=== PATIENT | male | born 1960 | race Caucasian/White ===

== ENCOUNTER 2017-09-08 07:40 | Emergency (ER) | payer BC ==
[~2017-09-08] VITALS: Ht 170.1 cm; Wt 83.9 kg
[~2017-09-08 07:40] MED LIST: ANAPROX DS550 MG PO; FLEXERIL10 MG PO; MOTRIN800 MG PO; TRAMADOL HCL50 MG PO
[2017-09-08] MEDS ORDERED: LEVOFLOXACIN500 MG PO (08:42)
== END 2017-09-08 09:08 | disposition home or self-care (01) ==
LOC: ED 07:40
DX: J40 Bronchitis, not specified as acute or chronic (principal); J32.9 Chronic sinusitis, unspecified

== ENCOUNTER 2018-10-20 23:46 | Emergency (ER) | payer BC ==
[~2018-10-20] VITALS: Ht 170.1 cm; Wt 81.6 kg
--- NOTE | ~2018-10-20 | EKG ---
[place], [place] ELECTROCARDIOGRAM REPORT NAME: JOSEFA BLANTON UNIT #: [id number] ROOM: DOCTOR: EPIPHANY DRAFT REPORT BIRTHDATE: [birth year] [facility] Test Date: 2018-10-20 Test Time: 23:52:39 Pat Name: JOSEFA BLANTON Department: Room: [facility] Gender: M Ham Smoker: : 1960 Requested By: SCOTT LLOYD Order Number: [id number] Reading MD: Jose Caicedo MD Measurements Intervals Creole Rate: 71 P: 34 KS: 148 QRS: 56 QRSD: 97 T: 26 QT: 378 QTc: 411 Interpretive Statements Sinus rhythm Minimal ST elevation, anterior leads Electronically Signed On 10-23-2018 8:11:41 PDT by Jose Caicedo MD CM:EKGRPT:ELECTROCARDIOGRAM REPORT [id number] SCOTT LLOYD MD EPIPHANY DRAFT REPORT SCOTT LLOYD MD
[~2018-10-20 23:46] MED LIST changes: +LEVOFLOXACIN500 MG PO
[2018-10-20 23:47] VITALS: BP 144/84
[2018-10-21 00:07] LABS: BASO # 0.1 10*3/uL (0.0-0.1); BASO % 0.9 % (0.0-1.0); EOS # 0.4 10*3/uL (0.0-0.4); EOS % 3.6 % (1.0-4.0); HEMATOCRIT 47.4 % (42.0-52.0); HEMOGLOBIN 15.5 g/dl (14.0-18.0); LYMPH % 20.1 % (27.0-41.0); MEAN CORPUSCULAR HGB 30.8 pg (27.0-31.0); MEAN CORPUSCULAR HGB CONC 32.7 g/dl (33.0-37.0); MEAN PLATELET VOLUME 10.5 fl (9.6-12.3); MONO # 0.9 10*3/uL (0.1-1.0); MONO % 9.5 % (3.0-9.0); NEUT # 6.5 10*3/uL (2.3-7.9); NEUT % 65.5 % (47.0-73.0); PLATELET COUNT AUTOMATED 279 10*3/uL (130-400); RED BLOOD COUNT 5.04 10*6/uL (4.50-5.90); RED CELL DISTRI WIDTH 13.6 % (0-14.5); WHITE BLOOD COUNT 9.9 10*3/uL (4.8-10.8)
[2018-10-21 00:43] LABS: ACT PARTIAL THROMBO TIME 24.9 SECONDS (20.0-32.1); INTERNATIONAL NORM RATIO 0.9 (2.0-3.5)
[2018-10-21 00:47] LABS: ALBUMIN 3.3 gm/dl (3.1-4.5); ALKALINE PHOSPHATASE 79 U/L (45-117); BUN 19 mg/dl (7-24); CHLORIDE 110 mmol/L (98-107); CREATININE 1.12 mg/dL (0.70-1.30); SGOT/AST 15 IU/L (3-35); SGPT/ALT 24 U/L (12-78); SODIUM 140 mmol/L (136-145); TOTAL PROTEIN 6.7 gm/dL (6.4-8.2)
[2018-10-21 00:49] LABS: TROPONIN I < 0.015 ng/ml (<0.045)
[2018-10-21 01:51] VITALS: BP 114/67
[2018-10-21 02:29] VITALS: BP 115/70
== END 2018-10-21 02:53 | disposition left against medical advice (07) ==
LOC: ED 23:46 → EDHOLD 10-21 02:19 → ED 10-21 02:19 → 5E 10-21 02:42 → EDHOLD 10-21 02:42 → ED 10-21 02:53
PROVIDERS: Emergency Medicine Emergency Medical Services
DX: R07.9 Chest pain, unspecified (principal); R06.02 Shortness of breath; R20.0 Anesthesia of skin; H53.8 Other visual disturbances; R42 Dizziness and giddiness; R11.0 Nausea; F17.200 Nicotine dependence, unspecified, uncomplicated

== ENCOUNTER 2019-01-10 06:16 | Emergency (ER) | payer BC ==
[~2019-01-10] VITALS: Ht 170.1 cm; Wt 86.2 kg
[2019-01-10] MEDS ORDERED: CEPHALEXIN500 M1 PO (06:47)
== END 2019-01-10 07:05 | disposition home or self-care (01) ==
LOC: ED 06:16
DX: S61.412A Laceration without foreign body of left hand, initial encounter (principal); W45.8XXA Other foreign body or object entering through skin, initial encounter; Y93.89 Activity, other specified; Y92.89 Other specified places as the place of occurrence of the external cause; Y99.8 Other external cause status

== ENCOUNTER 2020-10-23 08:06 | Emergency (ER) | payer BC ==
[~2020-10-23] VITALS: Wt 83.9 kg
[~2020-10-23 08:06] MED LIST changes: +CEPHALEXIN500 M1 PO
[2020-10-23 08:35] LABS: BASO # 0.1 10*3/uL (0.0-0.1); BASO % 0.6 % (0.0-1.0); EOS # 0.3 10*3/uL (0.0-0.4); EOS % 3.1 % (1.0-4.0); HEMATOCRIT 48.3 % (42.0-52.0); LYMPH # 1.9 10*3/uL (1.3-4.4); LYMPH % 17.9 % (27.0-41.0); MEAN CELL VOLUME 92.7 fl (80.0-94.0); MEAN CORPUSCULAR HGB 30.1 pg (27.0-31.0); MEAN CORPUSCULAR HGB CONC 32.5 g/dl (33.0-37.0); MEAN PLATELET VOLUME 9.3 fl (9.6-12.3); MONO % 9.3 % (3.0-9.0); NEUT # 7.2 10*3/uL (2.3-7.9); NEUT % 68.4 % (47.0-73.0); PLATELET COUNT AUTOMATED 242 10*3/uL (130-400); RED BLOOD COUNT 5.21 10*6/uL (4.50-5.90); RED CELL DISTRI WIDTH 13.5 % (0-14.5); WHITE BLOOD COUNT 10.5 10*3/uL (4.8-10.8)
[2020-10-23 08:46] LABS: BUN 16 mg/dl (7-24); CHLORIDE 107 mmol/L (98-107); CREATININE 1.32 mg/dL (0.70-1.30); POTASSIUM 4.3 mmol/L (3.5-5.1); SODIUM 138 mmol/L (136-145); URIC ACID 4.9 mg/dL (3.5-7.2)
== END 2020-10-23 09:37 | disposition home or self-care (01) ==
LOC: ED 08:06
PROVIDERS: Emergency Medicine
DX: M25.571 Pain in right ankle and joints of right foot (principal); F17.200 Nicotine dependence, unspecified, uncomplicated; Z90.89 Acquired absence of other organs

== ENCOUNTER → 2021-12-21 | Outpatient (CLI) | payer OTHER | END | disposition home or self-care (01) | LOC: RAD 12:38 | PROVIDERS: ATTEND Family Medicine | DX: M25.811 Other specified joint disorders, right shoulder (principal) ==

== ENCOUNTER 2022-01-13 12:50 | Emergency (ER) | payer SELFPAY ==
[~2022-01-13] VITALS: Ht 170.1 cm; Wt 86.2 kg
== END 2022-01-13 16:38 | disposition left against medical advice (07) ==
LOC: ED 12:50
DX: Z53.21 Procedure and treatment not carried out due to patient leaving prior to being seen by health care provider (principal)

== ENCOUNTER 2022-05-25 06:39 | Emergency (ER) | payer BC ==
[~2022-05-25] VITALS: Ht 170.1 cm; Wt 83.9 kg
[2022-05-25 08:13] LABS: BASO # 0.1 10*3/uL (0.0-0.1); BASO % 0.7 % (0.0-1.0); EOS # 0.3 10*3/uL (0.0-0.4); EOS % 3.1 % (1.0-4.0); HEMATOCRIT 51.8 % (42.0-52.0); LYMPH # 1.6 10*3/uL (1.3-4.4); LYMPH % 19.9 % (27.0-41.0); MEAN CELL VOLUME 93.5 fl (80.0-94.0); MEAN PLATELET VOLUME 9.2 fl (9.6-12.3); MONO # 0.8 10*3/uL (0.1-1.0); MONO % 9.4 % (3.0-9.0); NEUT # 5.5 10*3/uL (2.3-7.9); NEUT % 66.5 % (47.0-73.0); PLATELET COUNT AUTOMATED 248 10*3/uL (130-400); RED BLOOD COUNT 5.54 10*6/uL (4.50-5.90); RED CELL DISTRI WIDTH 13.1 % (0-14.5); WHITE BLOOD COUNT 8.3 10*3/uL (4.8-10.8)
[2022-05-25 08:25] LABS: ACT PARTIAL THROMBO TIME 28.9 SECONDS (20.0-32.1); INTERNATIONAL NORM RATIO 0.9 (2.0-3.5)
[2022-05-25 08:28] LABS: ALKALINE PHOSPHATASE 70 U/L (46-116); BUN 16 mg/dl (9-23); CHLORIDE 105 mmol/L (98-107); POTASSIUM 4.6 mmol/L (3.4-5.1); SGPT/ALT 32 U/L (10-49); TOTAL PROTEIN 7.1 gm/dL (6.0-8.0)
[2022-05-25] MEDS ORDERED: PREDNISONE50 MG PO (10:37)
[2022-05-25] MEDS ORDERED: PERCOCET 5-3251 EACH PO (10:37)
[2022-05-25] MEDS ORDERED: CYCLOBENZAPRINE10 MG PO (10:37)
== END 2022-05-25 11:10 | disposition home or self-care (01) ==
LOC: ED 06:39
PROVIDERS: Emergency Medicine
DX: M54.32 Sciatica, left side (principal)

== ENCOUNTER → 2022-10-06 | Outpatient (CLI) | payer BC ==
[~2022-10-06] MED LIST changes: +CYCLOBENZAPRINE10 MG PO; +PERCOCET 5-3251 EACH PO; +PREDNISONE50 MG PO
== END | disposition home or self-care (01) ==
LOC: RAD 11:32
PROVIDERS: ATTEND Chiropractor
DX: M51.37 Other intervertebral disc degeneration, lumbosacral region (principal)

== ENCOUNTER → 2022-11-08 | Outpatient (CLI) | payer BC | END | disposition home or self-care (01) | LOC: RAD 14:49 | PROVIDERS: ATTEND Family Medicine | DX: M47.812 Spondylosis without myelopathy or radiculopathy, cervical region (principal); M47.814 Spondylosis without myelopathy or radiculopathy, thoracic region; M48.02 Spinal stenosis, cervical region ==

== ENCOUNTER → 2023-03-21 | Outpatient (CLI) | payer BC ==
[~2023-03-21] MED LIST changes: +MELOXICAM15 MG PO
== END | disposition home or self-care (01) ==
LOC: MRI 07:31
PROVIDERS: ATTEND Registered Nurse
DX: M50.31 Other cervical disc degeneration, high cervical region (principal); M50.90 Cervical disc disorder, unspecified, unspecified cervical region; M25.78 Osteophyte, vertebrae; M48.03 Spinal stenosis, cervicothoracic region

== ENCOUNTER 2023-04-17 11:11 | Emergency (ER) | payer BC ==
[~2023-04-17] VITALS: Ht 170.1 cm; Wt 88.5 kg
[2023-04-17] MEDS ORDERED: IBU800 MG PO (11:36)
[2023-04-17] MEDS ORDERED: DEXAMETHASONE6 MG PO (12:34)
== END 2023-04-17 12:41 | disposition home or self-care (01) ==
LOC: ED 11:11
DX: U07.1 COVID-19 (principal); Z98.890 Other specified postprocedural states

== ENCOUNTER → 2024-07-23 | Outpatient (CLI) | payer BC ==
[~2024-07-23] MED LIST changes: +DEXAMETHASONE6 MG PO; +IBU800 MG PO
[2024-07-23 16:45] LABS: BILIRUBIN Negative (Negative); BLOOD Negative (Negative); CLARITY Clear (Clear); COLOR Yellow (Yellow); GLUCOSE Negative (Negative); KETONE Negative (Negative); LEUKO ESTERASE Negative (Negative); NITRITE Negative (Negative); SPECIFIC GRAVITY 1.015 (1.001-1.030); UROBILINOGEN 0.2 E.U./dl (0.0-1.0)
[2024-07-23 16:46] LABS: BASO # 0.1 10*3/uL (0.0-0.1); BASO % 0.8 % (0.0-1.0); EOS # 0.3 10*3/uL (0.0-0.4); EOS % 2.8 % (1.0-4.0); HEMATOCRIT 50.9 % (42.0-52.0); MEAN CELL VOLUME 93.2 fl (80.0-94.0); MEAN CORPUSCULAR HGB 29.9 pg (27.0-31.0); MEAN PLATELET VOLUME 9.1 fl (9.6-12.3); MONO # 0.9 10*3/uL (0.1-1.0); MONO % 9.3 % (3.0-9.0); NEUT # 6.4 10*3/uL (2.3-7.9); NEUT % 63.1 % (47.0-73.0); PLATELET COUNT AUTOMATED 233 10*3/uL (130-400); RED BLOOD COUNT 5.46 10*6/uL (4.50-5.90); RED CELL DISTRI WIDTH 13.5 % (0-14.5); WHITE BLOOD COUNT 10.1 10*3/uL (4.8-10.8)
[2024-07-23 17:23] LABS: ALKALINE PHOSPHATASE 75 U/L (46-116); BUN 16 mg/dl (9-23); CHLORIDE 105 mmol/L (98-107); CHOLESTEROL 205 mg/dL (<200); GAMMA GLUTAMYL TRANSPEPTIDASE 31 U/L (0-73); LDL CHOLESTEROL 130 mg/dL (9-159); POTASSIUM 4.4 mmol/L (3.4-5.1); SGPT/ALT 25 U/L (5-49); TOTAL PROTEIN 7.2 gm/dL (6.0-8.0); TRIGLYCERIDES 161 mg/dl (<150); URIC ACID 4.9 mg/dL (3.7-9.2)
[2024-07-23 17:25] LABS: VITAMIN D, 25-HYDROXY 27.1 ng/mL (30-100)
[2024-07-23 17:28] LABS: EPITHELIAL CELLS 0-2; WBC 0-2 wbc/hpf (0-5)
[2024-07-24 11:05] LABS: ANTI-DSDNA ANTIBODIES 1 IU/mL (0-9)
== END | disposition home or self-care (01) ==
LOC: LAB 16:08
PROVIDERS: ATTEND Family Medicine
DX: M25.562 Pain in left knee (principal); R79.89 Other specified abnormal findings of blood chemistry; R53.83 Other fatigue; E55.9 Vitamin D deficiency, unspecified